=== PATIENT | male | born 1995 | race Caucasian/White ===

== ENCOUNTER 2016-06-10 21:16 | Emergency (ER) | payer SELFPAY ==
[2016-06-11 00:13] VITALS: BP 138/78
== END 2016-06-11 00:14 | disposition home or self-care (01) ==
LOC: ED 21:16
DX: J45.909 Unspecified asthma, uncomplicated (principal); R03.0 Elevated blood-pressure reading, without diagnosis of hypertension; Z88.8 Allergy status to other drugs, medicaments and biological substances
CPT/HCPCS: J7512; J7613; J7644

== ENCOUNTER 2017-05-06 23:49 | Emergency (ER) | payer MEDICAID ==
[~2017-05-06] VITALS: Ht 167.6 cm; Wt 89.8 kg
[2017-05-07 00:12] VITALS: Ht 167.6 cm; Wt 89.8 kg
[2017-05-07 02:11] VITALS: BP 130/67
== END 2017-05-07 02:24 | disposition home or self-care (01) ==
LOC: ED 23:49
DX: G44.209 Tension-type headache, unspecified, not intractable (principal); I10 Essential (primary) hypertension; E11.9 Type 2 diabetes mellitus without complications; Z88.8 Allergy status to other drugs, medicaments and biological substances
CPT/HCPCS: J1885

== ENCOUNTER 2017-06-03 21:27 | Emergency (ER) | payer SELFPAY ==
[~2017-06-03] VITALS: Ht 175.3 cm; Wt 90.7 kg
[2017-06-03 21:31] VITALS: Ht 175.3 cm; Wt 90.7 kg
[2017-06-03 22:36] LABS: BASOPHIL % 0.3 % (0-2); PLATELET COUNT 371 x10^3mcL (130-400); RED CELL DISTRIBUTION WIDTH 14.4 % (11.5-14.5)
[2017-06-03 22:38] LABS: CALCIUM 8.7 mg/dL (8.5-10.1); CARBON DIOXIDE 27.8 mmol/L (21-32); CHLORIDE SERUM 105 mmol/L (98-107); CREATININE SERUM 0.7 mg/dL (0.7-1.3); GFR1 > 60 mL/min; GLUCOSE SERUM 117 mg/dL (74-106); POTASSIUM SERUM 3.5 mmol/L (3.5-5.1); SODIUM SERUM 140 mmol/L (136-145)
[2017-06-03 22:43] LABS: ALBUMIN 3.5 g/dL (3.4-5.0); ALKALINE PHOSPHATASE 65 U/L (46-116); ALT/SGPT 42 U/L (16-63); AST/SGOT 20 U/L (15-37); BILIRUBIN TOTAL 0.2 mg/dL (0.20-1.00); TOTAL PROTEIN, SERUM 7.4 g/dL (6.4-8.2)
[2017-06-04 01:03] VITALS: BP 128/70
== END 2017-06-04 01:03 | disposition home or self-care (01) ==
LOC: ED 21:27
PROVIDERS: Emergency Medicine
DX: R07.89 Other chest pain (principal); I10 Essential (primary) hypertension; E11.9 Type 2 diabetes mellitus without complications; Z88.8 Allergy status to other drugs, medicaments and biological substances
CPT/HCPCS: 36415; J1885; Q0092